=== PATIENT | male | born 1975 | race Caucasian/White ===

== ENCOUNTER 2021-10-24 15:52 | Outpatient (CLI) | payer OTHER, SELFPAY ==
--- NOTE | 2021-10-24 15:30 | DI.RAD_ITS ---
Exam(s) XR KNEE RT 3V AP,LAT,FABIÁN EXAM: XR KNEE RT 3V AP,LAT,FABIÁN CLINICAL HISTORY: right knee pain TECHNIQUE: COMPARISON: No exams were available for comparison FINDINGS: Three views were obtained. There is a prior ACL reconstruction with suture anchor at the lateral dis elodia femoral metaphysis. The cartilaginous joint spaces appear mildly narrowed in all 3 compartments with asymmetric narrowing of lateral patellofemoral joint space compared to the medial joint space. There is some flattening of the articular surfaces of the femoral condyles and proximal tibia. There are mild marginal osteophytes at multiple sites. Mild chondrocalcinosis noted. IMPRESSION: Moderate tricompartment DJD as described above. RADIATION DOSE DELIVERED: Total DLP
== END 2021-10-24 15:53 | disposition home or self-care (01) ==
LOC: DIORS 15:52
PROVIDERS: Visit Provider Student in an Organized Health Care Education/Training Program
DX: M25.561 Pain in right knee (principal); M17.11 Unilateral primary osteoarthritis, right knee; Z98.890 Other specified postprocedural states
CPT/HCPCS: 73562

== ENCOUNTER 2022-11-20 15:23 | Outpatient (CLI) | payer OTHER, SELFPAY ==
--- NOTE | 2022-11-20 13:45 | DI.RAD_ITS ---
Exam(s) XR KNEE RT 3V AP,LAT,FABIÁN EXAM: XR KNEE RT 3V AP,LAT,FABIÁN CLINICAL HISTORY: Right knee pain. TECHNIQUE: 2D digital imaging was performed of the right knee. Three views obtained. Merchant, AP an d lateral views were obtained. COMPARISON: CR XR KNEE RT 3V AP,LAT,FABIÁN from 10/24/2021 FINDINGS: BONES: No acute fracture is present. No bony destructive lesion is seen. There are findings of a prio r ACL repair. JOINTS: The knee is normally aligned. There is a small joint effusion. Degenerative changes are seen in the right knee characterized by joint space narrowing and periarticular spurring. Chondrocalcino sis is seen. SOFT TISSUE: Normal. IMPRESSION: Stable osteoarthritis of the right knee. DATA REPOSITORY: RADIATION DOSE DELIVERED:
== END 2022-11-20 15:24 | disposition home or self-care (01) ==
LOC: DIORS 15:24
PROVIDERS: PCP Nurse Practitioner; Referring Provider Nurse Practitioner; Visit Provider Student in an Organized Health Care Education/Training Program
DX: M25.561 Pain in right knee (principal); M25.461 Effusion, right knee; M17.11 Unilateral primary osteoarthritis, right knee
CPT/HCPCS: 73562

== ENCOUNTER 2022-12-14 00:25 | Outpatient (CLI) | payer OTHER, SELFPAY ==
--- NOTE | 2022-12-14 08:30 | DI.MRI_ITS ---
Exam(s) MR LOWER JOINT RT WO EXAM: MR LOWER JOINT RT WO CLINICAL HISTORY: ? MEDIAL MENISCUS TEAR,INTERNAL DERANGEMENT,M23.91. TECHNIQUE: Multiplanar multisequence MRI was performed. COMPARISON: CR XR KNEE RT 3V AP,LAT,FABIÁN from 11/20/2022 FINDINGS: BONES: There is no fracture or contusion pattern. Prior ACL repair. Degenerative cysts in the prox imal tibia JOINTS: A small to moderate size joint effusion is present. Articular cartilage: Patellofemoral joint: Articular cartilage is shows mild thinning and high signa l at the lateral facet Medial femoral tibial joint: Cartilage thinning and irregularity. Periarticular spurring. Lateral femoral tibial joint: Cartilage thinning and irregularity. Periarticular spurring. TENDONS: Extensor mechanism: Unremarkable. Medial retinaculum: Unremarkable. Lateral retinaculum: Unremarkable. Popliteus: Unremarkable. MUSCLES: Unremarkable. MENISCI: The medial meniscus shows linear horizontally and longitudinally oriented tear extending to the superior articular surface involving the posterior horn.. The lateral meniscus shows a radial te ar near the posterior root. Degenerative signal in the anterior horn. SOFT TISSUES: Unremarkable. LIGAMENTS: Anterior Cruciate: ACL repair appears completely torn. Posterior Cruciate: Unremarkable. Medial Collateral:Unremarkable. Lateral Collateral: Unremarkable. OTHER: IMPRESSION: Prior ACL repair with full-thickness tear. Radial tail at the root of the posterior horn of the lateral meniscus. Horizontal and longitudinally oriented tear involving the posterior horn of the medial meniscus. DATA REPOSITORY:
== END 2022-12-14 00:45 ==
LOC: DI 00:25
PROVIDERS: PCP Nurse Practitioner; Visit Provider Student in an Organized Health Care Education/Training Program
DX: M23.91 Unspecified internal derangement of right knee (principal)
CPT/HCPCS: 73721

== ENCOUNTER 2023-01-31 06:14 | Day surgery (SDC) | payer OTHER, SELFPAY ==
[2023-01-31 06:31] VITALS: BP 124/89; PULSE 54; RESP 15; TEMP 36.3; O2SAT 98
--- NOTE | 2023-01-31 06:58 | W.PM.DSUDISC ---
Date of service: 01/31/23 Time of Service: 09:00 Discharge Plan Disposition Patient Disposition: Home Discharge Details Attending Provider: Star Cuenca Primary Care Provider: Nita Sloan Home Meds and New Rx's Prescriptions: New naproxen 250 mg tablet 250 - 500 mg PO BID PRNQty: 40 0RF Rx Instructions: take with a meal aspirin 81 mg tablet,delayed release (DR/EC) 81 mg PO DAILY 14 Days Qty: 14 0RF oxycodone-acetaminophen [Percocet] 5-325 mg tablet 1 - 2 tab PO Q4H MDD 30 mg PRN (Reason: moderate to severe pain) Qty: 18 0RF Continued loratadine 10 mg Tablet 10 mg PO DAILY PRN Discharge Instructions Additional Instructions: Surgery: Right knee arthroscopy with partial medial & lateral meniscectomy and extensive debridement Activity: Weightbearing as tolerated. Advance range of motion as comfort allows. No knee brace or crutches needed as soon as comfortable. Recommend avoiding sports, pivoting, and squatting for 6-8 weeks. A physical therapy prescription will be sent electronically to start in 2 to 3 weeks. Prescriptions: Aspirin 81 mg take 1 daily to prevent a blood clot for 14 days Naproxen 250 mg take 1-2 every 12 hours with a meal as needed for moderate pain Oxycodone-acetaminophen 5-325 mg take 1-2 every 4-6 hours as needed for severe pain (contains Tylenol) These pain medications may be taken at once or in different combinations as needed. Also, recommend Colace (docusate) as a stool softener as surgery and pain medicine cause constipation. You may try [id number] diphenhydramine (Benadryl) 25-50 mg nightly as a sleep aid Dressings: Leave dressing in place for 3 days. May then remove and leave open to air or cover incisions with Band-Aids. Leave the sticky Steri-Strips in place until they fall off or remove them after you shower. May shower after 5 days. Follow-up: 10-[address] Cuenca You may take off the leg compression stockings this evening at home. You may also leave them on a few days longer if you have a history of leg swelling or edema. Let us know right away if you develop any redness, drainage, fevers, chest pain, or trouble breathing. Do not drink alcohol or drive for at least 24 hours after anesthesia. Please call the office during business hours with any questions or concerns. 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
--- NOTE | 2023-01-31 06:59 | W.ANESPRE ---
General Info Date of Service Date Performed: 01/31/23 Height: 5 ft 10 in Weight: 82 kg Body Mass Index (BMI): 25.9 Surgical Procedure: Operation Date: 01/31/23 07:40 Proposed Procedure Side Surgeon p Knee Arthroscopy w/ any other indicated meniscal, condral and synovial surgery Right Star Cuenca MD Meds Allergies and Home Medications Allergies Allergy/AdvReac Type Severity Reaction Status Date / Time weed pollen AdvReac Intermediate hayfever Verified 01/31/23 06:29 s/s Home Medication Medication Instructions Recorded aspirin 81 mg tablet,delayed 81 mg PO DAILY Prevent blood clot 01/31/23 release 14 days #14 tabs loratadine 10 mg tablet 10 mg PO DAILY PRN 01/31/23 naproxen 250 mg tablet 250 - 500 mg PO BID PRN #40 tabs 01/31/23 oxycodone 5 mg tablet 5 - 10 mg PO Q4H PRN moderate to 01/31/23 severe pain #18 tabs Current Visit Medications: Current Medications Generic Name Dose Route Start Last Admin Trade Name Freq PRN Reason Stop Dose Admin Ringer's Solution 1,000 mls @ 30 mls/hr 01/31/23 06:00 IV 03/01/23 23:59 INFUSION FLORA Cefazolin Sodium/Dextrose 2 gm in 50 mls @ 100 mls/hr 01/31/23 06:00 Ancef Duplex IVPB 03/01/23 23:59 PREOP FLORA IV Miscellaneous Supplies 1 each 01/31/23 06:00 Iv Access IV 03/01/23 23:59 DIRECTED FLORA Sodium Chloride 0 ml 01/31/23 06:00 Normal Saline Flush 10 Ml Syr IV 03/01/23 23:59 PRN PRN Sodium Chloride 0 ml 01/31/23 06:00 Normal Saline 10 Ml Vial IJ 03/01/23 23:59 DIRECTED PRN Sterile Water 0 ml 01/31/23 06:00 Water,Injection,Sterile 10 Ml Vial IJ 03/01/23 23:59 DIRECTED PRN PFSH Active Problems Active Problems: Problem Status Onset Code 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 M23.8X1 Chondromalacia, right knee M94.261 Acute medial meniscus tear of right knee ~10/2022 S83.241A Medical History Medical History (Updated 01/31/23 @ 06:29 by Raissa Aparicio) History of fracture of hand right; hardware in situ, 2 screws Medical History Comments:: Bhaskar smokes daily; last 01/30 Surgical History Surgical History H/O knee surgery (2000) Tobacco Smoking/Tobacco Use Status: Former Tobacco Use Alcohol Alcohol Intake: current Alcohol intake frequency: a few times a week Alcohol type: beer Substance Use Substance use: Daily Substance use type: marijuana Vital Signs and Lab Results Vital Signs Most Recent Vital Signs in EMR: Most Recent Vital Signs Temp Pulse Resp BP Pulse Ox 36.3 C L 54 L 15 124/89 98 01/31/23 06:31 01/31/23 06:31 01/31/23 06:31 01/31/23 06:31 01/31/23 06:31 Lab Results Blood Type / Crossmatch: No Data to Display Complete Blood Count: No Data to Display Complete Metabolic Panel: No Data to Display Liver Function Panel: No Data to Display Coagulation Panel: No Data to Display Cardiac Panel: No Data to Display Arterial Blood Gas: No Data to Display Venous Blood Gas: No Data to Display Pancreas Panel: No Data to Display Thyroid Panel: No Data to Display Infectious Disease: No Data to Display Blood Cultures: No Data to Display Toxicology Panel: No Data to Display Anesthesia Assessment and Plan Anesthesia History Personal History: No History of Anesthesia Complications Family History: No Family History of Anesthesia Complications Exercise Tolerance Exercise Tolerance: Metabolic Equivalents>4 Pertinent Negatives Pertinent Negatives: No Symptoms of GERD, No Major Cardiovascular Symptoms or Complaints, No Major Pulmonary Symptoms or Complaints and No History of CVA/TIA Cardiac & Pulmonary Exam Cardiac Exam: Normal S1/S2 Heart Sounds Pulmonary Exam: Clear Bilateral Breath Sounds Implantable Cardiac Device Does patient have a Pacemaker or an ICD?: No Airway Exam Known Difficult Airway: No Mallampati Class: 3 Mouth Opening: Normal (> 3cm) Thyromental Distance: Greater than 3 cm Neck Range of Motion: Full ROM Neck Circumference: Normal Teeth Condition: Normal Dentition ASA Classification ASA Score: ASA 2 Emergency Case?: No NPO Status NPO Status: NPO Clears >2 hours, Solids >8 hours Anesthesia Plan Resuscitation Status: Full Code Anesthesia Technique: Spinal Anesthesia Airway Planned: Natural Airway Monitors Used: Standard Monitors
--- NOTE | 2023-01-31 07:00 | ROE_ITS ---
Date of service: 01/31/23 Time of Service: 07:30 Operative Note Operative Note DATE OF PROCEDURE: 01/31/23 PRE-OP DIAGNOSIS: Right knee 1. Medial meniscus tear 2. Chronic ACL deficiency 3. Chondromalacia 4. Lateral meniscus tear POST-OP DIAGNOSIS: same PROCEDURE: Right knee 1. Partial medial & lateral meniscectomy, CPT #33245 2. Extensive debridement, CPT #09817: Including suprapatellar lysis of adhesions, patellofemoral synovectomy, medial gutter resection marginal osteophytes, intercondylar resection of osteophytes, and anterior and intercondylar debridement of chronically torn ACL stump remnants, lateral femoral condyle and undersurface patellar chondroplasty SURGEON: Star Cuenca CENTERLESS GRINDER TENDER: None None ANESTHESIA TYPE: Local By Surgeon and Spinal Refer to Anesthesia Record ESTIMATED BLOOD LOSS: 5 PATHOLOGY: none sent TOURNIQUET TIME: 0 Patient was transported to: PACU Patient's condition: stable Indications: Please see complete medical record for details. Findings: Exam under anesthesia: Grossly positive Frieda, stable varus and valgus, full range of motion, negative pivot shift Arthroscopic findings: Acute complex posterior horn medial meniscus body tear with displaced fragments. As expected, chronically ruptured ACL, global chronic degenerative changes including marginal osteophytes, cartilage loss, and partial lateral meniscus root tear. Procedure Description: In the operating room, general anesthesia was induced. The patient was positioned supine on the operating room table. All bony prominences were well- padded. Preoperative antibiotics were administered. The knee was prepped and draped in the usual sterile fashion. The correct patient, procedure, and side of the procedure were all verified prior to incision. Exam under anesthesia was performed. 10 cc of 0.25% bupivacaine containing epinephrine was infiltrated about the planned anteromedial and anterolateral knee arthroscopy portals. The portals were established and a complete diagnostic arthroscopy was performed with relevant findings detailed above. The medial meniscus complex tear was probed and identified. It contained displaced fragments inferior leaflets and parrot-beak through the posterior horn and meniscus body. Stable root and stable meniscus body into the anterior horn. Using a combination of hand instruments including meniscal biters and a power shaver and working through the anteromedial and anterolateral portals the meniscus was debrided of all torn tissue to a stable margin. Care was taken to preserve as much meniscus tissue was possible. The meniscal remnant was probed and found to have a stable margin, stable root, and no other tears. The lateral meniscus was then probed as well. There was a partial?thickness radial tear maybe 30-50% of the lateral meniscus root. The inner zone tissue could be flipped into the joint somewhat parrot-beak style. Again using a combination of hand instruments including meniscal biters and power shaver this was debrided and margin contoured to prevent tear propagation into the posterior horn. There was additional white zone tearing in the lateral meniscus body that was debrided as well. As much lateral meniscus was preserved as possible and the remnant was reasonably stable at the root without any other tears. The mechanical shaver was used to remove suprapatellar adhesions, resect inflamed abundant synovium from patellofemoral compartment and intercondylar area. The shaver was also used to resect the remnant ACL graft from the tibial and femoral sides that had free flapping tissue. The shaver was used as a christian to resect lateral intercondylar and medial gutter marginal osteophytes to a less prominent more smooth margin. There were more focal high-grade lateral femoral condyle undersurface patellar cartilage lesions with some loose cartilage impending flaps that were lightly resected with the shaver while preserving as much cartilage in the areas as possible. Under direct arthroscopic visualization an 18-gauge needle was passed into the knee from superolateral into the suprapatellar pouch. The knee was copiously irrigated with arthroscopic fluid until there was a clear effluent before being drained of all fluid. The anteromedial and anterolateral portals were closed in 3-0 Monocryl in a buried interrupted fashion. 20 cc of 0.25% bupivacaine with epinephrine containing 4 mg of morphine was infiltrated into the knee through the previously placed needle. Mastisol, Steri-Strips, and 4 x 4 gauze were applied over the incisions followed by sterile soft roll. The knee was then wrapped gently with an VAL comressive bandage. The patient awoke from anesthesia without complication and was transferred to the recovery room in a stable condition.
[2023-01-31 07:01] VITALS: BMI 25.9
[2023-01-31] MEDS: Lactated Ringers 1,000 ML 30 ML IV (07:30)
[2023-01-31] MEDS: MORPHine 4 MG/ML SYR (08:14)
[2023-01-31 08:50] VITALS: BP 111/73; PULSE 54; RESP 16; TEMP 35.8; O2SAT 99
[2023-01-31 09:30] VITALS: BP 133/77; PULSE 59; RESP 16; TEMP 36.2; O2SAT 99
--- NOTE | 2023-01-31 10:25 | W.ANESPOSTOP ---
Postoperative Evaluation Date, Time and Location Date Performed: 01/31/23 Time Performed: 09:30 Patient Location: Day Surgery Unit Vital Signs Most Recent Imported Vital Signs: Most Recent Vital Signs Temp Pulse Resp BP Pulse Ox 36.2 C L 59 L 16 133/77 99 01/31/23 09:30 01/31/23 09:30 01/31/23 09:30 01/31/23 09:30 01/31/23 09:30 Pain Score Most Recent Pain Score: Most Recent Pain Score Pain Level 0 01/31/23 09:30 Assessment Mental Status: Awake (Alert & Oriented to Patient Baseline) Airway and Respiratory Function: Patent airway with normal (patient baseline) respiratory exam Cardiovascular Function: Hemodynamically Stable Hydration Status: Adequately Hydrated Nausea & Vomiting: No Nausea or Vomiting Pain: Pt. Denies Any Pain Peripheral Nerve Block: Patient did not receive a nerve block
== END 2023-01-31 11:13 | disposition home or self-care (01) ==
PROVIDERS: PCP Nurse Practitioner; Visit Provider Student in an Organized Health Care Education/Training Program
PROC: (CPT 29870; principal; 2023-01-31 07:30)
DX: M94.261 Chondromalacia, right knee; S83.241A Other tear of medial meniscus, current injury, right knee, initial encounter; S83.281A Other tear of lateral meniscus, current injury, right knee, initial encounter; X58.XXXA Exposure to other specified factors, initial encounter
CPT/HCPCS: 29876; 29880; J1100; J1885; J2250; J2270; J2405; J2704

== ENCOUNTER 2024-05-05 15:24 | Outpatient (CLI) | payer OTHER, SELFPAY ==
--- NOTE | 2024-05-05 15:00 | DI.RAD_ITS ---
Exam(s) XR ELBOW RT COMPLETE EXAM: XR ELBOW RT COMPLETE CLINICAL HISTORY: evaluate right elbow. TECHNIQUE: 2D digital imaging was performed. COMPARISON: No exams were available for comparison FINDINGS: 3 views There is no evidence of acute fracture nor obvious joint effusion. There is no swelling of the olecr anon bursa. The radial head and neck appear intact as does the capitellum. Medial epicondyle unrema rkable. There is calcific density medially adjacent to the lateral epicondyle within the insertional aspect of the common extensor tendon. IMPRESSION: Calcific density in the soft tissues immediately adjacent to the lateral epicondyle within the insert ional aspect region of the common extensor tendon. Finding is a most probably consistent with latera l epicondylitis/tennis elbow. The opposite-medial condyle appears unremarkable. No obvious elbow joint effusion or swelling of the olecranon bursa. DATA REPOSITORY: RADIATION DOSE DELIVERED:
== END 2024-05-05 15:25 | disposition home or self-care (01) ==
LOC: DIORS 15:24
PROVIDERS: PCP Nurse Practitioner; Visit Provider Student in an Organized Health Care Education/Training Program
DX: M77.11 Lateral epicondylitis, right elbow (principal)
CPT/HCPCS: 73080